=== PATIENT | female | born 1960 | race African-American/Black ===

== ENCOUNTER 2022-04-26 15:41 | Inpatient (IN) | payer OTHER ==
[2022-04-26 16:34] VITALS: BMI 20.9
[2022-04-26] MEDS ORDERED: IBUPROFEN 600 MG TABLET (FP) PO PRN (18:40)
[2022-04-26] MEDS ORDERED: BISMUTH SUBSALICYLATE 524 MG/30 ML PO PRN (18:40)
[2022-04-26] MEDS ORDERED: LOPERAMIDE HCL 2 MG CAPSULE PO PRN (18:40)
[2022-04-26] MEDS ORDERED: IBUPROFEN 400 MG TABLET (FP) PO PRN (18:40)
[2022-04-26] MEDS ORDERED: NALOXONE HCL (KLOXXADO) 8 MG SPRAY NS PRN (18:40)
[2022-04-26] MEDS ORDERED: ACETAMINOPHEN 325 MG TABLET (FP) PO PRN ×2 (18:40)
[2022-04-26] MEDS ORDERED: MAGNESIUM CITRATE 300 ML BOTTLE PO PRN (18:40)
[2022-04-26] MEDS ORDERED: MAGNESIUM HYDROX 2400MG/30ML ORAL SUSPENSION 30 ML CUP PO PRN (18:40)
[2022-04-26] MEDS ORDERED: BENZOCAINE/MENTHOL (CHLORASEPTIC ) LOZENGE MM PRN (18:40)
[2022-04-26] MEDS ORDERED: NICOTINE 10 MG CARTRIDGE (INHALER) IH PRN (18:40)
[2022-04-26] MEDS ORDERED: hydrOXYzine PAMOATE 25 MG CAPSULE (FP) PO PRN (18:40)
[2022-04-26] MEDS ORDERED: ONDANSETRON *ODT* 4 MG TABLET SL PRN (18:40)
[2022-04-26] MEDS ORDERED: MAG HYDROX/AL HYDROX/SIMETH 30 ML UNIT-DOSE CUP PO PRN (18:40)
[2022-04-26] MEDS ORDERED: DICYCLOMINE HCL 10 MG CAPSULE PO PRN (18:40)
[2022-04-26] MEDS ORDERED: MELATONIN 5 MG TABLETS PO PRN (19:07)
[2022-04-26] MEDS ORDERED: MELATONIN 5 MG TABLETS PO SCH (22:00)
[2022-04-26] MEDS ORDERED: cloNIDine HCL 0.1 MG TABLET PO ONE (23:43)
[2022-04-26] MEDS: THIAMINE HCL 100 MG TABLET (FP) PO SCH (23:55)
[2022-04-27] MEDS: METHOCARBAMOL 500 MG TABLET PO PRN ×2 (07:43→18:09)
[2022-04-27] MEDS ORDERED: chlordiazePOXIDE HCL 25 MG CAPSULE PO PRN (09:27)
[2022-04-27] MEDS ORDERED: methaDONE HCL 10 MG TABLET (FOR DETOX USE ONLY) PO ONE ×2 (09:27→11:00)
[2022-04-27] MEDS: chlordiazePOXIDE HCL 25 MG CAPSULE PO SCH ×3 (11:15→22:39)
[2022-04-27] MEDS: NICOTINE 14 MG/24 HOURS TOPICAL PATCH TD SCH (11:18)
[2022-04-27] MEDS: PRENATAL VITAMINS W/ FOLIC ACID TABLET (FP) PO SCH (11:18)
[2022-04-27] MEDS: cloNIDine HCL 0.1 MG TABLET PO PRN (18:10)
[2022-04-27] MEDS ORDERED: cloNIDine HCL 0.1 MG TABLET PO ONE (20:59)
[2022-04-27] MEDS: THIAMINE HCL 100 MG TABLET (FP) PO SCH (22:38)
[2022-04-27] MEDS: QUEtiapine FUMARATE 50 MG TABLET PO SCH (22:39)
[2022-04-28] MEDS: chlordiazePOXIDE HCL 25 MG CAPSULE PO SCH ×4 (05:50→23:18)
[2022-04-28] MEDS: cloNIDine HCL 0.1 MG TABLET PO PRN ×2 (06:16→11:36)
[2022-04-28] MEDS: PRENATAL VITAMINS W/ FOLIC ACID TABLET (FP) PO SCH (11:36)
[2022-04-28] MEDS: NICOTINE 14 MG/24 HOURS TOPICAL PATCH TD SCH (11:36)
[2022-04-28] MEDS: METHOCARBAMOL 500 MG TABLET PO PRN (11:37)
[2022-04-28] MEDS: THIAMINE HCL 100 MG TABLET (FP) PO SCH (23:18)
[2022-04-28] MEDS: QUEtiapine FUMARATE 50 MG TABLET PO SCH (23:18)
[2022-04-29] MEDS: chlordiazePOXIDE HCL 25 MG CAPSULE PO SCH ×4 (05:55→22:58)
[2022-04-29] MEDS ORDERED: methaDONE HCL 10 MG TABLET (FOR DETOX USE ONLY) PO ONE (10:00)
[2022-04-29] MEDS: NICOTINE 14 MG/24 HOURS TOPICAL PATCH TD SCH (10:53)
[2022-04-29] MEDS: PRENATAL VITAMINS W/ FOLIC ACID TABLET (FP) PO SCH (10:53)
[2022-04-29] MEDS: cloNIDine HCL 0.1 MG TABLET PO PRN (10:59)
[2022-04-29 22:32] VITALS: BP 143/87; PULSE 73; RESP 17; TEMP 97.3
[2022-04-29] MEDS: QUEtiapine FUMARATE 50 MG TABLET PO SCH (22:58)
[2022-04-29] MEDS: THIAMINE HCL 100 MG TABLET (FP) PO SCH (22:58)
[2022-04-30] MEDS ORDERED: chlordiazePOXIDE HCL 10 MG CAPSULE PO PRN
[2022-04-30] MEDS ORDERED: chlordiazePOXIDE HCL 10 MG CAPSULE PO SCH (05:00)
[2022-05-01] MEDS ORDERED: chlordiazePOXIDE HCL 10 MG CAPSULE PO SCH (05:00)
[2022-05-01] MEDS ORDERED: methaDONE HCL 10 MG TABLET (FOR DETOX USE ONLY) PO ONE (10:00)
[2022-05-02] MEDS ORDERED: chlordiazePOXIDE HCL 10 MG CAPSULE PO ONE (05:00)
== END 2022-04-29 23:25 | disposition left against medical advice (07) | DRG 770 ==
LOC: YASAS 15:41 → Y3N 19:22 → UNDOADMIN 19:22
PROVIDERS: ADMIT Allergy & Immunology; ATTEND Surgery
PROC: HZ2ZZZZ Detoxification Services for Substance Abuse Treatment (ICD-10-PCS; principal; 2022-04-26)
DX: F11.23 Opioid dependence with withdrawal (principal); F10.230 Alcohol dependence with withdrawal, uncomplicated; F14.20 Cocaine dependence, uncomplicated; F17.210 Nicotine dependence, cigarettes, uncomplicated; F19.24 Other psychoactive substance dependence with psychoactive substance-induced mood disorder; F20.9 Schizophrenia, unspecified; I42.9 Cardiomyopathy, unspecified; I10 Essential (primary) hypertension; G47.00 Insomnia, unspecified; R76.11 Nonspecific reaction to tuberculin skin test without active tuberculosis
CPT/HCPCS: 93005; 93010; C9803-CS; U0003; U0005

== ENCOUNTER 2022-04-28 13:01 | Emergency (ER) | payer OTHER ==
[2022-04-28 13:14] VITALS: RESP 16; BMI 21.6
[2022-04-28 16:22] LABS: EOS % 0.7 % (0-4.5); HEMOGLOBIN 13.6 GM/dL (10.7-15.3); LYMPH % 17.8 % (8-40); MCH 33.2 pg (25.7-33.7); MCHC 33.9 g/dl (32.0-36.0); MEAN PLT VOLUME 8.1 fl (7.5-11.1); MONO % 4.8 % (3.8-10.2); NEUT % 75.7 % (42.8-82.8); PLATELET COUNT 262 10^3/uL (134-434); RBC 4.09 M/mm3 (3.60-5.2); RDW 13.1 % (11.6-15.6); WHITE BLOOD COUNT 5.5 K/mm3 (4.0-10.0)
[2022-04-28 16:47] LABS: CHLORIDE 102 mmol/L (98-107); SODIUM 134 mmol/L (136-145)
[2022-04-28 17:14] LABS: ALBUMIN 3.5 g/dl (3.4-5.0); ALK PHOS 97 U/L (45-117); ANION GAP 3 MMOL/L (8-16); BILIRUBIN,TOTAL 0.3 mg/dL (0.2-1); BLOOD UREA NITROGEN 20.2 mg/dL (7-18); CALCIUM 9.7 mg/dL (8.5-10.1); CO2 29 mmol/L (21-32); CREATININE 0.9 mg/dL (0.55-1.3); GLUCOSE,RANDOM 98 mg/dL (74-106); SGOT/AST 55 U/L (15-37); SGPT/ALT 26 U/L (13-61); TOT PROT 7.2 g/dl (6.4-8.2)
[2022-04-28 18:13] LABS: CALCIUM 9.4 mg/dL (8.5-10.1)
[2022-04-28 18:14] LABS: BLOOD UREA NITROGEN 17.3 mg/dL (7-18)
[2022-04-28 18:17] LABS: CREATININE 0.8 mg/dL (0.55-1.3)
[2022-04-28] MEDS ORDERED: cloNIDine HCL 0.1 MG TABLET PO ONE (19:58)
[2022-04-28] MEDS ORDERED: cloNIDine HCL 0.1 MG TABLET ONE (20:01)
[2022-04-28 21:10] VITALS: BP 195/90; PULSE 53; TEMP 98
== END 2022-04-28 21:46 | disposition home or self-care (01) ==
LOC: JER 13:01
DX: I10 Essential (primary) hypertension (principal)
CPT/HCPCS: 36415; 70450-TC; 71045-TC-FY; 80048; 80053; 84443; 84484; 85025; 93005; 93010; 99285-25